=== PATIENT | male | born 1960 | race Caucasian/White ===

== ENCOUNTER → 2017-06-08 | Outpatient (CLI) | payer OTHER ==
[~2017-06-08] MED LIST: ASPIRIN ADULT L81 M2 PO; DILTIAZEM CD300 MG PO; FLONASE ALLERG9.9 ML NAS; HYDRALAZINE HYD50 MG PO; HYDROCODONE BIT1 T19 PO; K-TAB10 MEQ PO; LANOXIN0.125 MG PO; LISINOPRIL40 MG PO; SINGULAIR10 M1 PO
== END | disposition home or self-care (01) ==
LOC: CARD 08:12
DX: I08.0 Rheumatic disorders of both mitral and aortic valves (principal); I50.1 Left ventricular failure, unspecified; R09.89 Other specified symptoms and signs involving the circulatory and respiratory systems

== ENCOUNTER 2017-12-21 17:13 | Emergency (ER) | payer OTHER ==
[~2017-12-21] VITALS: Ht 177.8 cm; Wt 109.3 kg
[2017-12-21 17:40] LABS: BASO # 0.1 10*3/uL (0.0-0.1); BASO % 0.7 % (0.0-1.0); EOS # 0.1 10*3/uL (0.0-0.4); EOS % 1.4 % (1.0-4.0); HEMATOCRIT 37.3 % (42.0-52.0); LYMPH # 1.3 10*3/uL (1.3-4.4); LYMPH % 18.3 % (27.0-41.0); MEAN CELL VOLUME 103.3 fl (80.0-94.0); MEAN CORPUSCULAR HGB 33.2 pg (27.0-31.0); MEAN CORPUSCULAR HGB CONC 32.2 g/dl (33.0-37.0); MEAN PLATELET VOLUME 10.3 fl (9.6-12.3); MONO # 0.7 10*3/uL (0.1-1.0); MONO % 9.7 % (3.0-9.0); NEUT # 5.1 10*3/uL (2.3-7.9); NEUT % 69.6 % (47.0-73.0); PLATELET COUNT AUTOMATED 184 10*3/uL (130-400); RED BLOOD COUNT 3.61 10*6/uL (4.50-5.90); RED CELL DISTRI WIDTH 12.7 % (0-14.5); WHITE BLOOD COUNT 7.3 10*3/uL (4.8-10.8)
[2017-12-21 17:56] LABS: ALBUMIN 3.3 gm/dl (3.1-4.5); ALKALINE PHOSPHATASE 89 U/L (45-117); BUN 39 mg/dl (7-24); CHLORIDE 113 mmol/L (98-107); CREATININE 2.12 mg/dL (0.70-1.30); SGOT/AST 22 IU/L (3-35); SGPT/ALT 25 U/L (12-78); SODIUM 142 mmol/L (136-145); TOTAL PROTEIN 6.8 gm/dL (6.4-8.2)
[2017-12-21 18:08] LABS: POTASSIUM 6.4 mmol/L (3.5-5.1); TROPONIN I < 0.015 ng/ml (<0.045)
== END 2017-12-21 18:45 | disposition left against medical advice (07) ==
LOC: ED 17:13
PROVIDERS: Nurse Practitioner Family
DX: E87.5 Hyperkalemia (principal); I11.0 Hypertensive heart disease with heart failure; I50.9 Heart failure, unspecified; E66.9 Obesity, unspecified; Z88.0 Allergy status to penicillin; Z79.82 Long term (current) use of aspirin; Z79.899 Other long term (current) drug therapy; Z68.30 Body mass index [BMI] 30.0-30.9, adult

== ENCOUNTER → 2018-02-08 | Outpatient (CLI) | payer OTHER | END | disposition home or self-care (01) | LOC: US 09:06 | DX: I10 Essential (primary) hypertension (principal) ==

== ENCOUNTER 2018-07-08 17:09 | Inpatient (IN) | payer OTHER ==
[~2018-07-08] VITALS: Ht 177.8 cm; Wt 101.9 kg
--- NOTE | ~2018-07-08 | EKG ---
[place], [place] ELECTROCARDIOGRAM REPORT NAME: RADHA CALL UNIT #: [id number] ROOM: 424 DOCTOR: LANE DRAFT REPORT BIRTHDATE: [birth year] [facility] Test Date: 2018-07-08 Test Time: 17:54:02 Pat Name: RADHA CALL Department: Room: 424 Gender: M Specialized Developer: JOSE : 1960 Requested By: JIMMY LOZA Order Number: [id number] Reading MD: Amilcar Foy MD Measurements Intervals [place] Rate: 81 P: [place]: QRS: 5 QRSD: 102 T: -38 QT: 406 QTc: 472 Interpretive Statements Atrial fibrillation Probable left ventricular hypertrophy Borderline T abnormalities, inferior leads Electronically Signed On 07-09-2018 6:33:38 PST by Amilcar Foy MD CM:EKGRPT:ELECTROCARDIOGRAM REPORT 1754 0633 JIMMY RODRIGUEZ DRAFT REPORT JIMMY LOZA DO
--- NOTE | ~2018-07-08 | EKG ---
[place], [place] ELECTROCARDIOGRAM REPORT NAME: RADHA CALL UNIT #: [id number] ROOM: 424 DOCTOR: LANE DRAFT REPORT BIRTHDATE: [birth year] [facility] Test Date: 2018-07-09 Test Time: 02:11:59 Pat Name: RADHA CALL Department: Room: 424 1 Gender: M Box Toe Cutter: Michelle Diaz : 1960 Requested By: BIANCA BARBER Order Number: [id number] Reading MD: Amilcar Foy MD Measurements Intervals [place] Rate: 63 P: [place]: QRS: 10 QRSD: 103 T: 195 QT: 436 QTc: 447 Interpretive Statements Atrial fibrillation Ventricular premature complex Nonspecific T abnormalities, lateral leads Electronically Signed On 07-09-2018 6:33:46 PST by Amilcar Foy MD CM:EKGRPT:ELECTROCARDIOGRAM REPORT 0211 0633 BIANCA SHERMAN DRAFT REPORT BIANCA BARBER
--- NOTE | ~2018-07-08 | CON ---
[place], [place] REPORT OF CONSULTATION NAME: RADHA CALL UNIT #: [id number] ROOM: 424 DOCTOR: MAYI MADDOXPEDRITO BIRTHDATE: [birth year] DOS: 07/09/2018 HISTORY OF PRESENT ILLNESS: This is a 57-year-old gentleman with a known history of nonischemic cardiomyopathy. The patient apparently admitted with flu-like symptoms. The patient's heart rate was varied from 50-70 for a short period. At that time, had some trigeminal rhythm and then he went into atrial fibrillation. The rate is very well controlled at this point. The patient denies any chest discomfort, shortness of breath, palpitations. He was feeling more of flu-like symptoms. PAST MEDICAL HISTORY: Bicuspid aortic valve, congestive heart failure, history of left ventricular dysfunction, nonischemic cardiomyopathy, patent coronary arteries by cardiac catheterization. PAST SURGICAL HISTORY: Back surgery, carpal tunnel surgery, arthroscopic knee surgery. SOCIAL HISTORY: Does not drink alcohol. Nonsmoker. FAMILY HISTORY: Positive for coronary artery disease. ALLERGIES: PENICILLIN. HOME MEDICATIONS: Atorvastatin, aspirin, digoxin, diltiazem, hydralazine, hydrocodone, lisinopril, metronidazole. REVIEW OF SYSTEMS: CONSTITUTIONAL: No fever, but reports chills. Denies any fever. HEENT: No visual disturbance or hearing problems. CARDIOVASCULAR: As per HPI. GASTROINTESTINAL: Showed report vomiting, had diarrhea. RESPIRATORY SYSTEM: No shortness of breath. GENITOURINARY: No dysuria. NEUROLOGIC: No syncope. PHYSICAL EXAMINATION: VITAL SIGNS: Blood pressure is 130/60, heart rate is 71, irregularly irregular. ABDOMEN: Soft, nontender. NEUROLOGICAL: Stable. EKG shows atrial fibrillation with a controlled ventricular response. LABORATORY DATA: Sodium 142, potassium 4.2, creatinine is 2. Liver functions are normal. Troponins have been negative. Hemoglobin 14.5, hematocrit 44.1. Blood cultures are pending. IMPRESSION: History of cardiomyopathy with nonischemic cardiomyopathy, paroxysmal atrial fibrillation, probably in new onset, hypertension, hyperlipidemia, history of congestive heart failure, systolic, history of mitral regurgitation, history of bicuspid aortic valve. [place], [place] REPORT OF CONSULTATION NAME: RADHA CALL UNIT #: [id number] ROOM: [facility] DOCTOR: PEDRITO SEE MD BIRTHDATE: [birth year] RECOMMENDATIONS: We will review the echocardiogram. Increase the beta winston, hold off on the Cardizem. The patient is on heparin start change it to oral anticoagulation probably with Eliquis because of the renal insufficiency. We will discuss with the pharmacy regarding the dosage. I will get a digoxin level and we will follow up with him. PEDRITO SEE MD CM:CONSTR:REPORT OF CONSULTATION 0917 07/09/18 1045 interface
--- NOTE | ~2018-07-08 | CON ---
[place], [place] REPORT OF CONSULTATION NAME: RADHA CALL UNIT #: [id number] ROOM: 424 DOCTOR: PEDRITO SEE MD BIRTHDATE: [birth year] DOS: 07/09/2018 ADDENDUM: SUBJECTIVE: I saw the patient this morning. Apparently, echocardiogram was done, preliminary ejection fraction about 30%, moderate aortic stenosis, moderate aortic regurgitation. IMPRESSION: The patient may need a right and left heart catheterization at a later date. PEDRITO SEE MD CM:CONSTR:REPORT OF CONSULTATION 1230 07/09/18 1516 interface
--- NOTE | ~2018-07-08 | EKG ---
[place], [place] ELECTROCARDIOGRAM REPORT NAME: RADHA CALL UNIT #: [id number] ROOM: 424 DOCTOR: LANE DRAFT REPORT BIRTHDATE: [birth year] [facility] Test Date: 2018-07-09 Test Time: 07:10:59 Pat Name: RADHA CALL Department: Room: 424 1 Gender: M Seals Engraver: Ashlie Landeros : 1960 Requested By: BIANCA BARBER Order Number: [id number] Reading MD: Amilcar Foy MD Measurements Intervals [place] Rate: 58 P: SD: QRS: 1 QRSD: 106 T: 152 QT: 470 QTc: 462 Interpretive Statements Atrial fibrillation Inferior infarct, old Lateral leads are also involved Electronically Signed On 07-09-2018 6:33:55 PST by Amilcar Foy MD CM:EKGRPT:ELECTROCARDIOGRAM REPORT 0710 0633 BIANCA SHERMAN DRAFT REPORT BIANCA BARBER
[2018-07-08 17:10] VITALS: BP 108/43
--- NOTE | 2018-07-08 17:33 | NUR ---
ARGUMENTATIVE. "WE WAITED 15 MINUTES IN THE LOBBY" EXPLAINED TO HER THERE IS CURRENTLY A HIGH VOLUME IN THE ED AT THIS TIME.
[2018-07-08 18:25] LABS: BASO % 0.2 % (0.0-1.0); EOS # 0.1 10*3/uL (0.0-0.4); EOS % 0.5 % (1.0-4.0); HEMATOCRIT 44.1 % (42.0-52.0); HEMOGLOBIN 14.5 g/dl (14.0-18.0); LYMPH # 0.8 10*3/uL (1.3-4.4); LYMPH % 7.5 % (27.0-41.0); MEAN CELL VOLUME 96.1 fl (80.0-94.0); MEAN CORPUSCULAR HGB 31.6 pg (27.0-31.0); MEAN CORPUSCULAR HGB CONC 32.9 g/dl (33.0-37.0); MEAN PLATELET VOLUME 10.3 fl (9.6-12.3); MONO # 0.9 10*3/uL (0.1-1.0); MONO % 8.5 % (3.0-9.0); NEUT # 8.7 10*3/uL (2.3-7.9); NEUT % 82.8 % (47.0-73.0); PLATELET COUNT AUTOMATED 230 10*3/uL (130-400); RED BLOOD COUNT 4.59 10*6/uL (4.50-5.90); RED CELL DISTRI WIDTH 12.9 % (0-14.5); WHITE BLOOD COUNT 10.5 10*3/uL (4.8-10.8)
[2018-07-08 18:36] LABS: ACT PARTIAL THROMBO TIME 21.9 SECONDS (20.8-31.5); INTERNATIONAL NORM RATIO 1.1 (2.0-3.5)
[2018-07-08 18:40] LABS: ALBUMIN 3.3 gm/dl (3.1-4.5); CREATININE 2.06 mg/dL (0.70-1.30); POTASSIUM 4.2 mmol/L (3.5-5.1); TOTAL PROTEIN 7.2 gm/dL (6.4-8.2); TROPONIN I 0.038 ng/ml (<0.045)
--- NOTE | 2018-07-08 19:07 | NUR ---
NURSE TO NURSE REPORT GIVEN TO THIS RN.
[2018-07-08 19:50] VITALS: BP 128/63
[2018-07-08 20:26] VITALS: BP 137/61
--- NOTE | 2018-07-08 20:55 | NUR ---
TASHA DRIVE IN TELLER SPOKE WITH DR. CARABALLO REGARDING PATIENT. INPATIENT NURSE TO CALL DR. STEVEN AFTER 0700 FOR ORDERS.
--- NOTE | 2018-07-08 20:59 | NUR ---
NURSE TO NURSE REPORT GIVEN TO MARNI TRUONG.PT TRANSFERRED TO FLOOR VIA STRETCHER BY MARNI MONSALVE.
--- NOTE | 2018-07-08 21:00 | NUR ---
MARIN MITCHELL CALLED TO GIVE REPORT OVER PHONE. ALL QUESTIONS ANSWERED
--- NOTE | 2018-07-08 21:07 | NUR ---
Time: 2108 A 57 year old MALE admitted to 4E under services of GIANLUCA PAUL DO. Pt. arrived via stretcher from ER. Chief complaint: ABD PAIN. DIONNE LAIRD
[2018-07-08] MEDS ORDERED: CARDIZEM LA120 MG PO (21:14)
[2018-07-08] MEDS ORDERED: LISINOPRIL20 MG PO (21:29)
[2018-07-08] MEDS ORDERED: CIPROFLOXACIN500 M4 PO (21:29)
[2018-07-08] MEDS ORDERED: MONTELUKAST SOD10 MG PO (21:30)
[2018-07-08] MEDS ORDERED: METRONIDAZOLE500 M1 PO (21:30)
[2018-07-08] MEDS ORDERED: CYCLOBENZAPRINE10 MG PO (21:31)
[2018-07-08] MEDS ORDERED: CARVEDILOL6.25 MG PO (21:31)
--- NOTE | 2018-07-08 21:33 | NUR ---
MED REC COMPLETED WITH PATIENT ALERT AND ORIENTED TO PERSON PLACE AND TIME. AT BEDSIDE. DR BARBER AT BEDSIDE.
[2018-07-08 22:00] VITALS: BP 136/63
--- NOTE | 2018-07-08 22:51 | NUR ---
MEDICATED WITH PRN NORCO FOR C/O BACK PAIN RATED 7/10 ON A 0/10 PAIN SCALE
[2018-07-09] VITALS: BP 141/62
--- NOTE | 2018-07-09 01:08 | NUR ---
IV HEPARIN PROTOCOL INITIATED PER ORDER. VERIFIED BY TWO RNs. 5,000 UNIT BOLUS ADMINISTERED OVER 15 MINUTES. HEPARIN GTT TO RUN AT 12U/KG/HR OR 12.1 ML/HR.
[2018-07-09 06:50] LABS: BASO % 0.3 % (0.0-1.0); EOS # 0.1 10*3/uL (0.0-0.4); EOS % 0.9 % (1.0-4.0); HEMATOCRIT 40.4 % (42.0-52.0); HEMOGLOBIN 13.4 g/dl (14.0-18.0); LYMPH # 1.4 10*3/uL (1.3-4.4); LYMPH % 21.1 % (27.0-41.0); MEAN CELL VOLUME 96.2 fl (80.0-94.0); MEAN CORPUSCULAR HGB 31.9 pg (27.0-31.0); MEAN CORPUSCULAR HGB CONC 33.2 g/dl (33.0-37.0); MEAN PLATELET VOLUME 10.1 fl (9.6-12.3); MONO # 0.8 10*3/uL (0.1-1.0); MONO % 11.7 % (3.0-9.0); NEUT # 4.3 10*3/uL (2.3-7.9); NEUT % 65.8 % (47.0-73.0); PLATELET COUNT AUTOMATED 185 10*3/uL (130-400); RED CELL DISTRI WIDTH 12.9 % (0-14.5); WHITE BLOOD COUNT 6.5 10*3/uL (4.8-10.8)
[2018-07-09 06:59] LABS: INTERNATIONAL NORM RATIO 1.1 (2.0-3.5)
[2018-07-09 07:08] LABS: ALBUMIN 2.8 gm/dl (3.1-4.5); CREATININE 1.83 mg/dL (0.70-1.30); PHOSPHOROUS 3.6 mg/dL (2.5-4.9); POTASSIUM 4.5 mmol/L (3.5-5.1); TOTAL PROTEIN 6.3 gm/dL (6.4-8.2)
[2018-07-09 07:14] LABS: THYROID STIM HORMONE (HS) 1.27 uIU/ml (0.358-4.75)
--- NOTE | 2018-07-09 08:00 | NUR ---
DR. SEE PAGED REGARDING CONSULT BY HIS ANSWERING SERVICE.
[2018-07-09 09:01] LABS: VITAMIN D, 25-HYDROXY 9.9 ng/mL (30-100)
[2018-07-09] MEDS ORDERED: ELIQUIS5 M1 PO (10:15)
[2018-07-09] MEDS ORDERED: COREG12.5 M1 PO (10:15)
[2018-07-09] MEDS ORDERED: XARELTO15 M1 PO (10:46)
[2018-07-09 12:00] VITALS: BP 138/59
--- NOTE | 2018-07-09 13:30 | NUR ---
PT DISCHARGED HOME. HEPLOCK AND INSPECTOR AIR CARRIER DISCONITNUED.
== END 2018-07-09 13:30 | disposition home or self-care (01) | DRG 309 ==
LOC: ED 17:09 → EDHOLD 20:02 → 4E 21:01
PROVIDERS: Nurse Practitioner Family; Student in an Organized Health Care Education/Training Program; ADMIT Internal Medicine
DX: I48.0 Paroxysmal atrial fibrillation (principal); D68.59 Other primary thrombophilia; Q23.1 Congenital insufficiency of aortic valve; I13.0 Hypertensive heart and chronic kidney disease with heart failure and stage 1 through stage 4 chronic kidney disease, or unspecified chronic kidney disease; I50.20 Unspecified systolic (congestive) heart failure; I42.9 Cardiomyopathy, unspecified; R19.7 Diarrhea, unspecified; D75.89 Other specified diseases of blood and blood-forming organs; E66.9 Obesity, unspecified; N18.3 Chronic kidney disease, stage 3 (moderate); I34.0 Nonrheumatic mitral (valve) insufficiency; R73.9 Hyperglycemia, unspecified; D72.810 Lymphocytopenia; Z88.0 Allergy status to penicillin; Z83.3 Family history of diabetes mellitus; Z80.3 Family history of malignant neoplasm of breast; Z79.82 Long term (current) use of aspirin; Z79.899 Other long term (current) drug therapy; Z79.01 Long term (current) use of anticoagulants; Z68.33 Body mass index [BMI] 33.0-33.9, adult

== ENCOUNTER 2018-07-12 14:37 | Inpatient (IN) | payer OTHER ==
[~2018-07-12] VITALS: Ht 177.8 cm; Wt 107.2 kg
--- NOTE | ~2018-07-12 | EKG ---
[place], [place] ELECTROCARDIOGRAM REPORT NAME: RADHA CALL UNIT #: [id number] ROOM: 511 DOCTOR: LANE DRAFT REPORT BIRTHDATE: [birth year] [facility] Test Date: 2018-07-12 Test Time: 20:18:24 Pat Name: RADHA CALL Department: Room: 511 Gender: M Carton Filler: EKG.VT : 1960 Requested By: JOAO HOOKS Order Number: [id number] Reading MD: Amilcar Foy MD Measurements Intervals [place] Rate: 85 P: CT: QRS: 14 QRSD: 102 T: 217 QT: 417 QTc: 496 Interpretive Statements Atrial fibrillation Abnormal R-wave progression, late transition Inferior infarct, old Lateral leads are also involved Compared to ECG 07/09/2018 07:10:59 No significant changes Electronically Signed On 07-15-2018 8:24:47 PST by Amilcar Foy MD CM:EKGRPT:ELECTROCARDIOGRAM REPORT 17 0824 JOAO SHERMAN DRAFT REPORT JOAO HOOKS M.D.
--- NOTE | ~2018-07-12 | CON ---
[place], [place] REPORT OF CONSULTATION [facility]: [id number] UNIT #: [id number] ROOM: 511 DOCTOR: LATOYA CARABALLO MD BIRTHDATE: [birth year] DOS: 07/13/2018 HISTORY OF PRESENT ILLNESS: This is a 57-year-old -[place]rist[place] man who is a patient of Dr. Foy. He had a nonischemic cardiomyopathy, and in 2014 coronary arteries were found to be normal, but he also has a bicuspid aortic valve and mild to moderate stenosis, chronic kidney disease and has had heart failure, essential hypertension. He has never had a stroke, diabetes mellitus, COPD, cancer. He does not use alcoholic beverages except on rare occasion and has been a nonsmoker. He was admitted to the hospital last week with new diagnosis of atrial fibrillation with rapid rate. He was treated appropriately. Heart rate was controlled and he was placed on Xarelto and sent home. On questioning, it becomes apparent that he had aches and pains and some weakness and diarrhea. About 2 days before, he was admitted with atrial fibrillation. He feels tired, exhausted, but does not have any chest pain, does not have any breathing difficulty, wake up short of breath and no swelling in the legs. He has not passed out. No nighttime sweats. HOME MEDICATIONS: Include carvedilol, lisinopril, Xarelto and digoxin 0.125 mg daily, diltiazem 120 daily, hydralazine 50 mg b.i.d., lisinopril 20 mg daily, Singulair 10 mg daily and Xarelto 15 mg daily and cyclobenzaprine 10 mg daily. PHYSICAL EXAMINATION: GENERAL: Reveals the patient who is very pleasant, alert, oriented. He is lying in bed comfortably. No active fever. There is no thyromegaly or finger clubbing. VITAL SIGNS: Pulse is irregular at 80 beats per minute, blood pressure is 114/42. NECK: JVP is normal. AJR is definitely negative. HEART: There is no carotid bruit. He has grade 3 to 4/6 mid peaking systolic murmur over the aortic area and aortic sound is easily appreciated, although mildly diminished in intensity. EXTREMITIES: There is no edema in the lower extremity. RESPIRATORY: He is not tachypneic. Lungs are clear to percussion and auscultation with excellent breath sounds. ABDOMEN: Supple and nontender. No bruit or pulsatile mass. LABORATORY DATA: An ECG showed atrial fibrillation with PVCs. Troponin I level is normal. Chest x-ray was unremarkable. IMPRESSION: 1. New diagnosis of atrial fibrillation, rate is nicely controlled. 2. Dilated cardiomyopathy, pretty much resolved. An echocardiogram done last week showed almost normalization of left ventricular systolic function. 3. Bicuspid aortic valve with mild to moderate aortic stenosis. 4. I think this patient's fatigue and lack of pep is likely from viral [place], [place] REPORT OF CONSULTATION NAME: RADHA CALL UNIT #: [id number] ROOM: 511 DOCTOR: LATOYA CARABALLO MD BIRTHDATE: [birth year] infection that he has had for the last week. 5. From cardiac standpoint, he may be discharged home and to follow up with Dr. Law mcarthur. LATOYA CARABALLO MD CM:CONSTR:REPORT OF CONSULTATION 1657 07/14/18 0455 interface
--- NOTE | ~2018-07-12 | EKG ---
[place], [place] ELECTROCARDIOGRAM REPORT NAME: RADHA CALL UNIT #: [id number] ROOM: 511 DOCTOR: LANE DRAFT REPORT BIRTHDATE: [birth year] [facility] Test Date: 2018-07-12 Test Time: 14:40:10 Pat Name: RADHA CALL Department: Room: 511 Gender: M Joint Finisher: Arminda Isaac : 1960 Requested By: JOAO HOOKS Order Number: [id number] Reading MD: Amilcar Foy MD Measurements Intervals [place] Rate: 54 P: [place]: QRS: 3 QRSD: 100 T: 194 QT: 418 QTc: 397 Interpretive Statements Atrial fibrillation Inferior infarct, old Lateral leads are also involved Baseline wander in lead(s) V1 Compared to ECG 07/09/2018 07:10:59 No significant changes Electronically Signed On 07-15-2018 8:24:10 PST by Amilcar Foy MD CM:EKGRPT:ELECTROCARDIOGRAM REPORT 1440 0824 JOAO SHERMAN DRAFT REPORT JOAO HOOKS M.D.
--- NOTE | ~2018-07-12 | EKG ---
[place], [place] ELECTROCARDIOGRAM REPORT NAME: RADHA CALL UNIT #: [id number] ROOM: 511 DOCTOR: LANE DRAFT REPORT BIRTHDATE: [birth year] [facility] Test Date: 2018-07-12 Test Time: 17:42:34 Pat Name: RADHA CALL Department: Room: 511 Gender: M Bundle Tier And Labeler: Arminda Isaac : 1960 Requested By: JOAO HOOKS Order Number: [id number] Reading MD: Amilcar Foy MD Measurements Intervals [place] Rate: 48 P: [place]: QRS: 5 QRSD: 98 T: 178 QT: 421 QTc: 377 Interpretive Statements Atrial fibrillation Inferior infarct, old Lateral leads are also involved Baseline wander in lead(s) V1 Compared to ECG 07/09/2018 07:10:59 No significant changes Electronically Signed On 07-15-2018 8:24:38 PST by Amilcar Foy MD CM:EKGRPT:ELECTROCARDIOGRAM REPORT 1742 0824 JOAO SHERMAN DRAFT REPORT JOAO HOOKS M.D.
[~2018-07-12 14:37] MED LIST changes: +CARDIZEM LA120 MG PO; +CARVEDILOL6.25 MG PO; +CIPROFLOXACIN500 M4 PO; +COREG12.5 M1 PO; +CYCLOBENZAPRINE10 MG PO; +ELIQUIS5 M1 PO; +LISINOPRIL20 MG PO; +METRONIDAZOLE500 M1 PO; +MONTELUKAST SOD10 MG PO; +XARELTO15 M1 PO
[2018-07-12 14:55] LABS: BASO % 0.6 % (0.0-1.0); EOS # 0.1 10*3/uL (0.0-0.4); EOS % 1.7 % (1.0-4.0); HEMATOCRIT 41.6 % (42.0-52.0); HEMOGLOBIN 13.6 g/dl (14.0-18.0); LYMPH # 1.2 10*3/uL (1.3-4.4); LYMPH % 16.7 % (27.0-41.0); MEAN CORPUSCULAR HGB 31.7 pg (27.0-31.0); MEAN CORPUSCULAR HGB CONC 32.7 g/dl (33.0-37.0); MONO # 0.8 10*3/uL (0.1-1.0); MONO % 10.9 % (3.0-9.0); NEUT # 5.1 10*3/uL (2.3-7.9); NEUT % 69.5 % (47.0-73.0); PLATELET COUNT AUTOMATED 253 10*3/uL (130-400); RED BLOOD COUNT 4.29 10*6/uL (4.50-5.90); RED CELL DISTRI WIDTH 13.1 % (0-14.5); WHITE BLOOD COUNT 7.3 10*3/uL (4.8-10.8)
[2018-07-12 15:31] LABS: ACT PARTIAL THROMBO TIME 28.8 SECONDS (20.8-31.5); INTERNATIONAL NORM RATIO 1.2 (2.0-3.5)
[2018-07-12 15:44] LABS: ALBUMIN 3.1 gm/dl (3.1-4.5); CREATININE 1.77 mg/dL (0.70-1.30); POTASSIUM 4.3 mmol/L (3.5-5.1); TOTAL PROTEIN 6.6 gm/dL (6.4-8.2); TROPONIN I 0.025 ng/ml (<0.045)
[2018-07-12 16:46] VITALS: BP 134/61
--- NOTE | 2018-07-12 16:46 | NUR ---
A 57, admitted to 5E, under the services of JUAN M Anderson DO with a diagnosis of CHEST PAIN. Chief complaint is INTERMITTENT CHEST PAIN, SOB.. Patient arrived via ambulatory from ER. Monitor applied. Initial assessment completed. Vital signs taken and recorded. JUAN M ANDERSON DO notified of admission to the unit. Orders received. See assessment for past medical history, medications and allergies. Patient and/or family oriented to unit. [facility] visitation policy reviewed. Clothing/patient valuable form completed. ZARINA SANTOYO
--- NOTE | 2018-07-12 16:53 | NUR ---
MED REC UPDATED WITH PT AT BEDSIDE. PT REPORTS NO CHANGE IN MEDS SINCE DISCHARGE FROM [facility] LAST THURSDAY.
--- NOTE | 2018-07-12 17:56 | NUR ---
INFORMED THAT LISINOPRIL HAS BEEN UPDATED ON PTs HOME MED REC. SAID TO ORDER WHAT PT TAKES AT HOME. SEE MAR.
[2018-07-12 20:00] VITALS: BP 117/47; BP 130/60
--- NOTE | 2018-07-12 20:47 | NUR ---
DR SEE CALLED WITH NEW CONSULT- DR CARABALLO WEATHERSEAL TECHNICIAN- NO ANSWER. NO VOICEMAIL LEFT-VOICEMAIL BOX NOT SET UP. WILL CALL BACK.
--- NOTE | 2018-07-12 21:35 | NUR ---
PATIENT REQUESTING PAIN MEDICATION FOR BACK PAIN. NORCO ADMINISTERED PRESCRIBED. WILL MONITOR FOR EFECTIVENESS.
--- NOTE | 2018-07-12 22:35 | NUR ---
PATIENT RESTING COMFORTABLY AT THIS TIME. RATES PAIN 4/10 AT THIS TIME. WILL CONTINUE TO MONITOR.
--- NOTE | 2018-07-12 22:35 | NUR ---
DR CARABALLO CALLED BACK FOR INFORMATION ON NEW CONSULT. WILL SEE PATIENT IN THE MORNING.
[2018-07-13] VITALS: BP 109/67
[2018-07-13 07:26] LABS: BASO % 0.5 % (0.0-1.0); EOS # 0.1 10*3/uL (0.0-0.4); HEMATOCRIT 38.3 % (42.0-52.0); HEMOGLOBIN 12.2 g/dl (14.0-18.0); LYMPH # 1.4 10*3/uL (1.3-4.4); LYMPH % 21.4 % (27.0-41.0); MEAN CORPUSCULAR HGB 31.2 pg (27.0-31.0); MEAN CORPUSCULAR HGB CONC 31.9 g/dl (33.0-37.0); MEAN PLATELET VOLUME 10.9 fl (9.6-12.3); MONO # 0.8 10*3/uL (0.1-1.0); MONO % 11.9 % (3.0-9.0); NEUT # 4.1 10*3/uL (2.3-7.9); NEUT % 63.7 % (47.0-73.0); PLATELET COUNT AUTOMATED 178 10*3/uL (130-400); RED BLOOD COUNT 3.91 10*6/uL (4.50-5.90); WHITE BLOOD COUNT 6.5 10*3/uL (4.8-10.8)
[2018-07-13 07:37] LABS: ALBUMIN 2.8 gm/dl (3.1-4.5); CREATININE 1.63 mg/dL (0.70-1.30); PHOSPHOROUS 4.3 mg/dL (2.5-4.9); POTASSIUM 4.6 mmol/L (3.5-5.1); TOTAL PROTEIN 5.9 gm/dL (6.4-8.2)
[2018-07-13 08:00] VITALS: BP 122/50
--- NOTE | 2018-07-13 09:32 | NUR ---
PT REQUESTED AND RECEIVED PO NORCO PER PRN ORDER FOR FOR C/O BACK PAIN. RATES PAIN 02/19. WILL MONITOR EFFECTIVENESS. CALL LIGHT WITHIN REACH.
--- NOTE | 2018-07-13 10:30 | NUR ---
PAIN BEING RELIEVED PER PT. AT BEDSIDE.
--- NOTE | 2018-07-13 10:58 | NUR ---
IN TO SEE PATIENT REGARDING PLAN OF CARE.
[2018-07-13 12:00] VITALS: BP 122/48
[2018-07-13 16:00] VITALS: BP 114/42
--- NOTE | 2018-07-13 17:09 | NUR ---
DR CARABALLO IN TO SEE PATIENT AT THIS TIME AND STATES THAT PATIENT IS CLEARED FROM HIS STANDPOINT. DR BARBER NOTIFIED THAT PATIENT IS INQUIRING ABOUT GOING HOME AND STATES "IT PROBABLY WILL NOT BE TODAY"
--- NOTE | 2018-07-13 17:58 | NUR ---
PATIENT INQUIRING ABOUT WANTING TO GO HOME, DR BARBER NOTIFIED AND IS ON FLOOR TO SEE PATIENT AND PATIENT'S AT THIS TIME.
[2018-07-13 20:00] VITALS: BP 133/64
[2018-07-14] VITALS: BP 130/71
--- NOTE | 2018-07-14 05:49 | NUR ---
PATIENT MEDICATED WITH NORCO FOR COMPLAINTS OF BACK PAIN. WILL MONITOR FOR EFFECTIVENESS.
[2018-07-14 07:03] LABS: BASO % 0.2 % (0.0-1.0); EOS # 0.2 10*3/uL (0.0-0.4); EOS % 1.7 % (1.0-4.0); HEMOGLOBIN 12.7 g/dl (14.0-18.0); LYMPH % 11.9 % (27.0-41.0); MEAN CELL VOLUME 95.1 fl (80.0-94.0); MEAN CORPUSCULAR HGB CONC 32.6 g/dl (33.0-37.0); MEAN PLATELET VOLUME 10.5 fl (9.6-12.3); MONO # 0.9 10*3/uL (0.1-1.0); MONO % 10.4 % (3.0-9.0); NEUT # 6.6 10*3/uL (2.3-7.9); NEUT % 75.5 % (47.0-73.0); PLATELET COUNT AUTOMATED 179 10*3/uL (130-400); RED CELL DISTRI WIDTH 12.7 % (0-14.5); WHITE BLOOD COUNT 8.7 10*3/uL (4.8-10.8)
[2018-07-14 07:16] LABS: CREATININE 1.54 mg/dL (0.70-1.30); POTASSIUM 4.3 mmol/L (3.5-5.1)
[2018-07-14 08:00] VITALS: BP 116/52
--- NOTE | 2018-07-14 08:00 | NUR ---
Patient resting quietly with no c/o discomfort. Respirations easy and regular. Vital signs stable. No overt distress. ADELITA FAN R
--- NOTE | 2018-07-14 11:23 | NUR ---
Discharge instructions reviewed with patient/family. Patient receptive and verbalizes understanding. Follow-up care arranged. Written instructions given to patient/family. ADELITA FAN
--- NOTE | 2018-07-14 11:33 | NUR ---
Furnace Process Plant Operator in to talk to patient. Patient states lives at HOME with . There are SOME steps in the home. Physician: BERNADETTE Pharmacy: [facility] Home health services: NONE Patient's level of ADLs: INDEPENDENT Patient has working utilities: YES DME: NONE Follow-up physician's appointment after d/c: WILL BE MADE BY HOSPITALIST NURSE DIRECTOR ON DISCHARGE Does patient want to access PORTAL?: NO Discharge plan PT STATES HE LIVES AT HOME WITH HIS AND IS INDEPENDENT IN CARE. HAS NO HOME NEEDS AT THIS TIME. WILL CONTINUE TO FOLLOW.. EVELYNE QUINN
== END 2018-07-14 11:23 | disposition home or self-care (01) | DRG 313 ==
LOC: ED 14:37 → EDHOLD 15:57 → 5E 16:17
PROVIDERS: Emergency Medicine; Nurse Practitioner Family; Registered Nurse; Student in an Organized Health Care Education/Training Program; ADMIT Internal Medicine
DX: R07.9 Chest pain, unspecified (principal); D68.59 Other primary thrombophilia; I50.22 Chronic systolic (congestive) heart failure; E44.0 Moderate protein-calorie malnutrition; I13.0 Hypertensive heart and chronic kidney disease with heart failure and stage 1 through stage 4 chronic kidney disease, or unspecified chronic kidney disease; I42.9 Cardiomyopathy, unspecified; I42.0 Dilated cardiomyopathy; N18.3 Chronic kidney disease, stage 3 (moderate); E87.8 Other disorders of electrolyte and fluid balance, not elsewhere classified; R73.9 Hyperglycemia, unspecified; R74.0 Nonspecific elevation of levels of transaminase and lactic acid dehydrogenase [LDH]; E55.9 Vitamin D deficiency, unspecified; Z88.0 Allergy status to penicillin; N18.9 Chronic kidney disease, unspecified; I34.0 Nonrheumatic mitral (valve) insufficiency; E66.9 Obesity, unspecified; Z83.3 Family history of diabetes mellitus; Z80.3 Family history of malignant neoplasm of breast; I48.91 Unspecified atrial fibrillation; I35.0 Nonrheumatic aortic (valve) stenosis; Z68.32 Body mass index [BMI] 32.0-32.9, adult

== ENCOUNTER → 2018-11-03 | Outpatient (CLI) | payer OTHER | END | disposition home or self-care (01) | LOC: CARD 01:23 | DX: I35.0 Nonrheumatic aortic (valve) stenosis (principal); I51.7 Cardiomegaly; I42.0 Dilated cardiomyopathy; Z95.2 Presence of prosthetic heart valve; Z98.890 Other specified postprocedural states; Z86.79 Personal history of other diseases of the circulatory system ==

== ENCOUNTER → 2019-06-27 | Outpatient (CLI) | payer OTHER | END | disposition home or self-care (01) | LOC: RESCLI 02:28 | DX: I11.0 Hypertensive heart disease with heart failure (principal); I50.32 Chronic diastolic (congestive) heart failure; I48.0 Paroxysmal atrial fibrillation; K21.9 Gastro-esophageal reflux disease without esophagitis; M54.5 Low back pain; G89.29 Other chronic pain; J30.2 Other seasonal allergic rhinitis; Z79.899 Other long term (current) drug therapy; Z88.0 Allergy status to penicillin ==

== ENCOUNTER 2019-12-21 02:38 | Inpatient (IN) | payer OTHER ==
[2019-12-21] VITALS (15 sets, daily range): BP systolic 86–128; BP diastolic 40–94
[~2019-12-21] VITALS: Ht 177.8 cm; Wt 107.6 kg
[2019-12-21 03:00] LABS: BASO % 0.3 % (0.0-1.0); EOS # 0.3 10*3/uL (0.0-0.4); HEMATOCRIT 32.5 % (42.0-52.0); LYMPH # 0.9 10*3/uL (1.3-4.4); LYMPH % 7.8 % (27.0-41.0); MEAN CELL VOLUME 100.9 fl (80.0-94.0); MEAN CORPUSCULAR HGB 32.3 pg (27.0-31.0); MEAN PLATELET VOLUME 10.3 fl (9.6-12.3); MONO # 1.3 10*3/uL (0.1-1.0); MONO % 11.2 % (3.0-9.0); NEUT # 8.6 10*3/uL (2.3-7.9); NEUT % 77.3 % (47.0-73.0); PLATELET COUNT AUTOMATED 215 10*3/uL (130-400); RED BLOOD COUNT 3.22 10*6/uL (4.50-5.90); RED CELL DISTRI WIDTH 13.2 % (0-14.5); WHITE BLOOD COUNT 11.2 10*3/uL (4.8-10.8)
[2019-12-21 03:11] LABS: ACT PARTIAL THROMBO TIME 38.5 SECONDS (20.0-32.1); INTERNATIONAL NORM RATIO 1.6 (2.0-3.5)
[2019-12-21 03:17] LABS: ALBUMIN 2.6 gm/dl (3.1-4.5); ALKALINE PHOSPHATASE 72 U/L (45-117); BUN 38 mg/dl (7-24); CHLORIDE 104 mmol/L (98-107); CREATININE 1.79 mg/dL (0.70-1.30); POTASSIUM 5.3 mmol/L (3.5-5.1); SGOT/AST 23 IU/L (3-35); SGPT/ALT 42 U/L (12-78); SODIUM 137 mmol/L (136-145); TOTAL PROTEIN 6.7 gm/dL (6.4-8.2)
[2019-12-21 03:18] LABS: TROPONIN I < 0.015 ng/ml (<0.045)
[2019-12-21] MEDS ORDERED: ALDACTONE25 MG PO (03:36)
[2019-12-21] MEDS ORDERED: COREG25 MG PO (03:38)
[2019-12-21] MEDS ORDERED: LIPITOR20 MG PO (03:39)
[2019-12-21] MEDS ORDERED: LOSARTAN POTASS25 M1 PO (03:40)
[2019-12-21] MEDS ORDERED: PEPCID40 MG PO (03:40)
[2019-12-21] MEDS ORDERED: LASIX20 MG PO (03:41)
--- NOTE | 2019-12-21 03:46 | NUR ---
PATIENT RECENTLY HAD RIGHT KNEE REPLACEMENT LAST THURSDAY, PER PATIENT HAS SURGICAL DRESSING ON AND IT IS NOT TO BE REMOVED UNTIL THIS COMING THURSDAY. PATIENT REQUESTING NOT TO HAVE DRESSING REMOVED FOR PHOTO.
--- NOTE | 2019-12-21 04:50 | NUR ---
A 59, admitted to , under the services of JUAN M Anderson DO with a diagnosis of AFIB WITH RVR. Chief complaint is TACHYCARDIA. Patient arrived via bed from ER. Monitor applied. Initial assessment completed. Vital signs taken and recorded. JUAN M ANDERSON DO notified of admission to the unit. Orders received. See assessment for past medical history, medications and allergies. Patient and/or family oriented to unit. [facility] visitation policy reviewed. Clothing/patient valuable form completed. TAISHA SHANNON
--- NOTE | 2019-12-21 04:50 | NUR ---
PATIENT ARRIVES TO FLOOR ON CARDIZEM GTT @5MLS/HR BAG #1
--- NOTE | 2019-12-21 05:28 | NUR ---
DR MANSFIELD ANSWERING SERVICE NOTIFIED OF CONSULT
--- NOTE | 2019-12-21 05:29 | NUR ---
PT HAS A SURGICAL DRESSING TO RIGHT KNEE AFTER A KNEE REPLACEMENT ON Thursday12/14/2019. PER PT, THE DRESSING IS DUE TO BE CHANGED 12/22/2019. UNABLE TO ASSESS WOUND AT THIS TIME.
[2019-12-21] MEDS ORDERED: ASPIRIN ADULT L81 M1 PO (05:44)
[2019-12-21] MEDS ORDERED: HYDROCODONE-AC1 EACH PO (05:46)
--- NOTE | 2019-12-21 06:03 | NUR ---
MEDS RECONCILED PER PT'S HOME MED LIST
[2019-12-21 06:53] LABS: BILIRUBIN NEGATIVE (NEGATIVE); BLOOD NEGATIVE (NEGATIVE); CLARITY CLEAR (CLEAR); COLOR YELLOW (YELLOW); GLUCOSE NEGATIVE (NEGATIVE); KETONE NEGATIVE (NEGATIVE); SPECIFIC GRAVITY 1.015 (1.005-1.030)
[2019-12-21 06:54] LABS: EPITHELIAL CELLS 0-2; LEUKO ESTERASE NEGATIVE (NEGATIVE); NITRITE NEGATIVE (NEGATIVE); RBC 0-2 rbc/hpf (0-2); UROBILINOGEN 0.2 E.U./dl (0.2-1.0); WBC 0-2 wbc/hpf (0-5)
--- NOTE | 2019-12-21 07:12 | NUR ---
DR CHE NOTIFIED PATIENT IN NSR 90'S WITH PVC'S CARDIZEM GTT @5/HR, STATES OK TO TITRATE OFF
--- NOTE | 2019-12-21 07:19 | NUR ---
RADHA CALL [id number] Please refer to the physician's history and physical for past medical history, comorbid conditions, and allergies. Diagnosis: ATRIAL FIBRILLATION WITH RAPID VENTRICULAR RESPONS Ford Score: 18,AT RISK WOUND DESCRIPTIONS: This nurse went to evaluate patient for skin impairments. Upon assessment duoderm noted to right knee. Scant amount of strikethrough drainage noted. Patient stated there is a nurse coming tomorrow to remove the dressing and a dry dressing should replace this dressing. Patient states he had surgery last thursday with Dr. Chun and is scheduled for a follow up next week. Surface the patient is resting on: Isoflex SKIN PREVENTION RECOMMENDATION: 1. Pressure redistribution support surface as appropriate 2. Elevate heels 3. Remove boots/TEDS every shift and reapply 4. Head of bed 30 degrees as tolerated 5. Assess nutrition and hydration 6. Manage moisture 7. Avoid the use of containment devices while in bed 8. Use absorptive products on surfaces limit layers of linens on bed 9. Turn and reposition every 1-2 hours in bed and every 1 hour in chair as tolerated 10. Weight shifts every 15 minutes while up in chair 11. Offloading with pillows or device to keep heels elevated off bed 12. Monitor skin at least every shift 13. Inspect under medical devices twice a day WOUND TREATMENT RECOMMENDATIONS: Patient will follow up with Dr. Abraham upon discharge who perform the surgery. Remove drssing 12/22/19 to right knee. Cleanse area with nss and apply dsd daily and prn for soiling.
--- NOTE | 2019-12-21 08:23 | NUR ---
PT REQUESTED AND RECEIVED PO NORCO PER PRN ORDER FOR C/O RIGHT KNEE PAIN. S/P RIGHT KNEE REPLACEMENT ON 12/13. RATES PAIN 02/19. WILL MONITOR EFFECTIVENESS. CALL LIGHT WITHIN REACH.
--- NOTE | 2019-12-21 09:00 | NUR ---
Napkin Machine Operator in to talk to patient. Patient states lives at home with . There are no steps in the home. Physician: rhina bagley Pharmacy: [facility] health services: [facility] Patient's level of ADLs: MINIMAL ASSIST Patient has working utilities: all working DME: walker Follow-up physician's appointment after d/c: will be made by hospitalist nurse director upon discharge Does patient want to access PORTAL?: no Discharge plan discussed with patient, he states he lives at home with his , he is independent in adls and uses a walker for ambulation due to having knee replacement last week, he states he has [facility] and would like to resume their services. case management will notify [facility] when patient is discharged, case management will follow. NIKI ANGELES
--- NOTE | 2019-12-21 09:23 | NUR ---
JULIANA RELIEVING PAIN PER PT. WILL CONTINUE TO MONITOR. CALL LIGHT WITHIN REACH.
--- NOTE | 2019-12-21 11:04 | NUR ---
EKG PERFORMED PER ORDER. EKG RESULTS CALLED TO AT THIS TIME.
--- NOTE | 2019-12-21 11:32 | NUR ---
ON FLOOR TO REVIEW EKG AT THIS TIME.
--- NOTE | 2019-12-21 13:06 | NUR ---
MEDICATED WITH PRN IV MORPHINE FOR RIGHT KNEE PAIN RATED 9/10 ON PAIN SCALE.
--- NOTE | 2019-12-21 14:06 | NUR ---
MORPHINE RELIEVING PAIN PER PT. WILL CONTINUE TO MONITOR.
--- NOTE | 2019-12-21 14:50 | NUR ---
Occupational Therapy evaluation completed on four with full evaluation to follow. Recommend occupational therapy per plan of care and home with continued HH services and assist from family upon discharge. Thank you for this referral.
--- NOTE | 2019-12-21 14:50 | NUR ---
Physical Therapy evaluation completed on 4th floor with full evaluation to follow. Recommend physical therapy per plan of care and home with HH services upon discharge. Thank you for this referral. Julia Benito PT
--- NOTE | 2019-12-21 15:16 | NUR ---
PT REQUESTED PO NORCO PER PRN ORDER FOR C/O RIGHT KNEE PAIN. RATES PAIN 8/10. WILL MONITOR EFFECTIVENESS.
--- NOTE | 2019-12-21 16:00 | NUR ---
CPM APPLIED PER ORDER. PT STATES HE TOLERATES 80-90 DEGREES AT HOME. CURRENTLY ON 80 DEGREES. WILL MONITOR.
--- NOTE | 2019-12-21 16:16 | NUR ---
JULIANA RELIEVING PAIN PER PT. WILL CONTINUE TO MONITOR. CPM MAINTAINED PER ORDER.
--- NOTE | 2019-12-21 17:31 | NUR ---
PATIENT UP TO RR VIA WALKER. CPM REMOVED. PT REPOSITIONED BACK INTO BED. CPM APPLIED PER ORDER. PT GIVEN IV MORPHINE PER PRN ORDER FOR C/O RIGHT KNEE PAIN. RATES PAIN 7/10. WILL MONITOR EFFECTIVENESS. CALL LIGHT WITHIN REACH.
--- NOTE | 2019-12-21 18:31 | NUR ---
MORPHINE RELIEVING PAIN PER PT. WILL CONTINUE TO MONITOR.
--- NOTE | 2019-12-21 20:20 | NUR ---
CPM READJUSTED. PT. VOICES NO C/O AT THIS TIME. WILL CONTINUE TO MONITOR. CALL LIGHT WITHIN REACH.
--- NOTE | 2019-12-21 22:00 | NUR ---
PT. VOICES NO C/O AT THIS TIME; CALL LIGHT WITHIN REACH.
--- NOTE | 2019-12-21 23:15 | NUR ---
MEDICATED WITH NORCO FOR C/O RIGHT KNEE PAIN RATED AN 8/10.
[2019-12-22] VITALS: BP 106/50
--- NOTE | 2019-12-22 01:00 | NUR ---
RESTING IN BED WITH EYES CLOSED; PAIN MEDICATION GIVEN EARLIER APPARENTLY EFFECTIVE.
--- NOTE | 2019-12-22 05:44 | NUR ---
MEDICATED WITH NORCO FOR C/O RIGHT KNEE PAIN RATED A 7/10.
[2019-12-22 05:52] LABS: BASO % 0.5 % (0.0-1.0); EOS # 0.4 10*3/uL (0.0-0.4); EOS % 4.6 % (1.0-4.0); LYMPH # 0.9 10*3/uL (1.3-4.4); MEAN CELL VOLUME 101.3 fl (80.0-94.0); MEAN CORPUSCULAR HGB 32.4 pg (27.0-31.0); MEAN CORPUSCULAR HGB CONC 31.9 g/dl (33.0-37.0); MEAN PLATELET VOLUME 10.2 fl (9.6-12.3); MONO # 0.9 10*3/uL (0.1-1.0); MONO % 11.7 % (3.0-9.0); NEUT # 5.8 10*3/uL (2.3-7.9); NEUT % 71.5 % (47.0-73.0); PLATELET COUNT AUTOMATED 213 10*3/uL (130-400); RED BLOOD COUNT 3.06 10*6/uL (4.50-5.90); RED CELL DISTRI WIDTH 13.2 % (0-14.5); WHITE BLOOD COUNT 8.1 10*3/uL (4.8-10.8)
[2019-12-22 06:08] LABS: CREATININE 1.63 mg/dL (0.70-1.30); POTASSIUM 4.7 mmol/L (3.5-5.1)
--- NOTE | 2019-12-22 06:15 | NUR ---
RESTING IN BED WITH EYES CLOSED; PAIN MEDICATION APPARENTLY EFFECTIVE.
--- NOTE | 2019-12-22 06:43 | NUR ---
Patient requesting first dressing change to be completed by a physcian and not a nurse.
[2019-12-22 07:36] VITALS: BP 128/63
--- NOTE | 2019-12-22 07:38 | NUR ---
PHYSICAL THERAPY IN TO SEE PATIENT AT THIS TIME.
--- NOTE | 2019-12-22 07:40 | NUR ---
PHYSICAL THERAPY Patient seen this am 1;1 for therapy visit and was resting supine in bed upon therapist arrival. Patient identified by name / and reports 6/10 R knee pain. Patient transfers supine to sit EOB with SBA, then sit to stand SBA with use of wh walker standing support. Patient ambulates 75'x 1, CGA, wh walker, demonstrating decreased R heel stike, increased gait velocity and impulsive behaviour at times which contributes to POOR safety awareness. Patient is WBAT on R LE and received v/c to improve R knee flexion during "toe off" step sequence. Patient returned to EOB sit and remained with call light, tray table and telephone. Will continue per POC as tolerated, total treatment time 15 minutes. Manuel Lemon, SWIM COACH
--- NOTE | 2019-12-22 07:55 | NUR ---
OT NOTE Pt was seen this A.M. 1:1 for 15 minute OT session. Upon arrival pt was supine in bed. Pt identified by name and and had complaints of 6/10 R knee pain. Pt transferred supine to sit EOB I. While sitting EOB pt doffed and donned B socks LA. Sit to stand then completed from bed level with SBA followed by functional mobility around the room and to the bathroom and back with SBA and use of w/w for UE support. Throughout pt presented with good safety awareness. Pt's heart rate throughout activity was 95 bpm. Pt then transferred sit to supine I. There he was left with call light in hand, tray table in place, and phone in reach. Continue with rec D/C plan to return home. ALEENA Bonner/Ange
--- NOTE | 2019-12-22 09:00 | NUR ---
case management visits with patient, he will return home when medically stable and resume [facility] health, case management will follow
--- NOTE | 2019-12-22 09:20 | NUR ---
CPM IN USE PER ORDER. NO DISTRESS NOTED. WILL CONTINUE TO MONITOR. CALL LIGHT WITHIN REACH.
[2019-12-22 12:00] VITALS: BP 110/69
--- NOTE | 2019-12-22 12:08 | NUR ---
PT REQUESTED PO NORCO PER PRN ORDER FOR C/O RIGHT KNEE PAIN. RATES PAIN 9/10. WILL MONITOR EFFECTIVENESS.
--- NOTE | 2019-12-22 13:08 | NUR ---
NORCO RELIEVING PAIN PER PT. WILL CONTINUE TO MONITOR.
--- NOTE | 2019-12-22 15:06 | NUR ---
case management contacted [facility], home health resume orders faxed, will notify them when patient is discharged
--- NOTE | 2019-12-22 15:06 | NUR ---
PATIENT REQUESTED TO SPEAK TO PHYSICIAN REGARDING DISCHARGE. CALLED AT THIS TIME REGARDING PATIENT'S REQUEST.
[2019-12-22] MEDS ORDERED: LOSARTAN POTASS50 M1 PO (15:15)
[2019-12-22] MEDS ORDERED: CARVEDILOL25 MG PO (15:15)
--- NOTE | 2019-12-22 15:34 | NUR ---
THIS NURSE SPOKE WITH REGARDING DISCHARGE. PATIENT TO STAY ANOTHER DAY AND BE DISCHARGED TOMORROW.
[2019-12-22 16:00] VITALS: BP 111/72
--- NOTE | 2019-12-22 17:35 | NUR ---
PT MEDICATED WITH IV MORPHINE PER PRN ORDER FOR C/O RIGHT KNEE PAIN. RATES PAIN 01/19. WILL MONITOR EFFECTIVENESS. CALL LIGHT WITHIN REACH.
--- NOTE | 2019-12-22 18:35 | NUR ---
IV MORPHINE EFFECTIVE PER PT.
[2019-12-22 20:00] VITALS: BP 103/69
--- NOTE | 2019-12-22 21:46 | NUR ---
PO NORCO ADMINISTERED FOR C/O PAIN IN R KNEE RATED 7/10. WILL MONITOR EFFECTIVENESS. CALL LIGHT IN REACH.
--- NOTE | 2019-12-22 23:30 | NUR ---
IV MORPHINE ALSO ADMINSITERED AT THIS TIME FOR C/O PAIN IN R KNEE RATED 8/10 AND NOW PAIN IN R HAND RATED 4/10. WILL MONITOR. CALL LIGHT IN REACH.
--- NOTE | 2019-12-22 23:30 | NUR ---
PT CALLED RN INTO ROOM STATING THAT IV TO R WRIST/HAND BLEEDING. RN INTO ROOM. IV SITE REMOVED. DURING REMOVAL, PT DEVELOPED SKIN TEAR. PHOTO TAKEN PER POLICY. RN HELD PRESSURE TO SITE. TEMORARY DRESSING OF ADAPTIC/OPTIFOAM APPLIED TO SITE TO STOP BLEEDING. SURE PREP APPLIED TO PERIWOUND AND ALLOWED TO DRY COMPLETELY PRIOR TO DRESSING APPLICATION. PT TOLERATED WELL. WILL NOTIFY
[2019-12-23] VITALS (8 sets, daily range): BP systolic 105–126; BP diastolic 57–68
--- NOTE | 2019-12-23 00:20 | NUR ---
EARLIER MEDICATIONS EFFECTIVE PER PT.
--- NOTE | 2019-12-23 01:44 | NUR ---
NOTIFIED OF SKIN TEAR ON R HAND. WILL PLACE ORDERS BASED ON WOUND CARE RECOMMENDATIONS.
--- NOTE | 2019-12-23 04:30 | NUR ---
POLITICAL REPORTER CALLED, PT THROWING MORE COUPLETS/TRIPLETS/MULTIFOCAL PVCs THAN PREVIOUSLY. ALSO IRREGULAR UNDERLYING RHYTHM. STAT EKG ORDERED. NOTIFIED.
--- NOTE | 2019-12-23 04:43 | NUR ---
HERE TO REVIEW AUTO DAMAGE ESTIMATOR STRIPS/EKG. NEW ORDERS RECEIVED.
--- NOTE | 2019-12-23 04:43 | NUR ---
[facility] CALLED TO HAVE MEDICATIONS VERIFIED. WILL GIVE COREG WHEN PROFILED.
--- NOTE | 2019-12-23 05:39 | NUR ---
PT HR UP TO 130S-150S WHEN UP TO BATHROOM. PT RETURNED TO BED AND HR BACK IN 120S. 50 MG COREG ADMINISTERED AT 0450. WILL CONTINUE TO MONITOR EFFECTIVENESS. PT INSISTS ON USING CPM MACHINE WITH "HIS" SETTINGS THAT ARE "FIXED." REFUSES TO USE STRAPS INSTRUCTED.
[2019-12-23 06:22] LABS: CREATININE 1.67 mg/dL (0.70-1.30); POTASSIUM 4.6 mmol/L (3.5-5.1)
--- NOTE | 2019-12-23 06:39 | NUR ---
RADHA CALL [id number] Please refer to the physician's history and physical for past medical history, comorbid conditions, and allergies. Diagnosis: ATRIAL FIBRILLATION WITH RAPID VENTRICULAR RESPONS Ford Score: 18,AT RISK WOUND DESCRIPTIONS: New Skin Impairment: Wound Number: 2 Location of the wound: right hand Type of wound: skin tear Thickness: Partial Size: 4.5cm x 2.0cm x 0.1cm Tunneling: none Undermining: none Sinus Tract: none Presence of Exudate: Serousanguineous Amount: Moderate Color: Red Odor: None Periwound Skin Appearance: Normal Wound edges: approximated Pain (associated with wound): tender at time of assessment How does patient state this happened? pt states this happened yesterday when tape was remove Surface the patient is resting on: Isoflex SKIN PREVENTION RECOMMENDATION: 1. Pressure redistribution support surface as appropriate 2. Elevate heels 3. Remove boots/TEDS every shift and reapply 4. Head of bed 30 degrees as tolerated 5. Assess nutrition and hydration 6. Manage moisture 7. Avoid the use of containment devices while in bed 8. Use absorptive products on surfaces limit layers of linens on bed 9. Turn and reposition every 1-2 hours in bed and every 1 hour in chair as tolerated 10. Weight shifts every 15 minutes while up in chair 11. Offloading with pillows or device to keep heels elevated off bed 12. Monitor skin at least every shift 13. Inspect under medical devices twice a day WOUND TREATMENT RECOMMENDATIONS: skin tear guidelines: Cleanse right hand with nss and apply sureprep around the wound hydrogel to wound versatel to wound bed and cover with optifoam gentle every 2 days and prn for soiling. Follow up in the wound care on 12/26/19 4:00pm with Brent BERNARDO-BC card given to patient.
--- NOTE | 2019-12-23 07:05 | NUR ---
MADE AWARE OF CURRENT RHYTHM AFTER COREG ADMINISTRATION. ALSO MADE AWARE OF WOUND CARE RECOMMENDATIONS. NEW ORDERS RECEIVED.
--- NOTE | 2019-12-23 07:38 | NUR ---
PHYSICAL THERAPY Screen received pt has already been evaled and is on caseload, thank you. Julia Benito PT
--- NOTE | 2019-12-23 10:00 | NUR ---
Dr. Vega notified of wound care recommendations.
--- NOTE | 2019-12-23 10:58 | NUR ---
Nutritional Support Services Note: Appetite is good for meals, he is eating 100% of meals. Cardiac diet as ordered. Skin tear noted to right hand and right knee has healing surgical incision. Continue to encourage 100% po intake of meals. Will provide a night snack. Will follow if needed. No other nutrition intervention needed at this time. Alethea Lucia Rdn Ld
--- NOTE | 2019-12-23 12:45 | NUR ---
OCCUPATIONAL THERAPY CO-SIGN I approve of the Occupational Therapy notes written above. ANGELINA LAUGHLIN, OTR/L
--- NOTE | 2019-12-23 13:00 | NUR ---
PHYSICAL THERAPY Patient was supine in bed with CPM running and stated he had just recently received his pain pill and was instructed to stay in bed by his Nurse. Therapist will attempt to verify this with Nursing and will continue per POC as able. Manuel Lemon, ENVIRONMENTAL COORDINATOR
--- NOTE | 2019-12-23 17:03 | NUR ---
[place] AGREED TO DRESSING CHANGE OF RIGHT KNEE, REFUSED PICTURES, PER PT " O HELL IF YOU GOTTA DO ALL OF THAT DONT BOTHER" DRESSING CHANGED, WOUND ASSESSED, WELL APPROXIMATED INCISION OF RIGHT KNEE, MEASURING 15CM IN LENGTH <0.1CM IN WIDTH, WOUND EDGES ARE NORMAL COLOR, NO REDNESS NOTED NO DRAINAGE, AREA CLEANSED WITH NORMAL SALINE AND COVERED WITH STERILE 4X4, AND SECURED WITH MEDFIX TAPE
--- NOTE | 2019-12-23 20:17 | NUR ---
PATIENT IS AAOX3 RESTING IN BED WITH EASY AND REGULAR RESPERS ON ROOM AIR. ASSESSMENT IS COMPLETE WITH NO S/S OF DISTRESS NOTED AT THIS TIME. PATIENT C/O RIGHT KNEE PAIN RATING A 7/10 AND REQUESTING PAIN MEDICATION. PATIENT IS HOOKED UP TO CPM MACHINE HE STATES" I PUT IT ON MYSELF, I DONT WANT TO WAR THE STRAPS." BED IS LOW, LOCKED, AND CALL LIGHT IS WITHIN REACH. WILL CONTINE TO MONITOR, SEE INTERVENTION SCREEN.
--- NOTE | 2019-12-23 20:25 | NUR ---
PRN NORCO GIVEN FOR C/O RIGHT KNEE PAIN. CALL LIGHT IS WITHIN REACH. WILL MONITOR EFFECT.
[2019-12-24] VITALS: BP 113/54
--- NOTE | 2019-12-24 02:07 | NUR ---
24 HR. CHART CHECK COMPLETE.
--- NOTE | 2019-12-24 02:36 | NUR ---
PATIENT MEDICATED WITH NORCO FOR C/O RIGHT KNEE PAIN. RATES 01/19. WILL CHECK EFFECTIVENESS.
--- NOTE | 2019-12-24 03:30 | NUR ---
PRN NORCO SEEMS EFFECTIVE, PATIENT IS SLEEPING WITH EASY AND REGULAR RESPERS ON ROOM AIR. CALL LIGHT IS WITHIN REACH.
--- NOTE | 2019-12-24 05:01 | NUR ---
PATIENT AWAKENS EASILY FOR AM MEDICATION AND LAB DRAW. PATIENT TOLERATED WELL. CALL LIGHT IS WITHIN REACH.
[2019-12-24 06:43] LABS: CREATININE 1.72 mg/dL (0.70-1.30); POTASSIUM 4.7 mmol/L (3.5-5.1)
[2019-12-24 06:44] LABS: BASO % 0.3 % (0.0-1.0); EOS # 0.3 10*3/uL (0.0-0.4); EOS % 2.9 % (1.0-4.0); HEMATOCRIT 32.5 % (42.0-52.0); LYMPH % 9.6 % (27.0-41.0); MEAN CELL VOLUME 98.8 fl (80.0-94.0); MEAN CORPUSCULAR HGB 31.9 pg (27.0-31.0); MEAN CORPUSCULAR HGB CONC 32.3 g/dl (33.0-37.0); MEAN PLATELET VOLUME 10.3 fl (9.6-12.3); MONO # 1.2 10*3/uL (0.1-1.0); NEUT % 75.5 % (47.0-73.0); RED BLOOD COUNT 3.29 10*6/uL (4.50-5.90); RED CELL DISTRI WIDTH 13.2 % (0-14.5); WHITE BLOOD COUNT 10.5 10*3/uL (4.8-10.8)
[2019-12-24 06:48] LABS: PLATELET COUNT AUTOMATED 298 10*3/uL (130-400)
[2019-12-24 08:00] VITALS: BP 113/73
[2019-12-24 12:00] VITALS: BP 115/60
[2019-12-24 16:00] VITALS: BP 109/73
[2019-12-24 20:00] VITALS: BP 113/73
--- NOTE | 2019-12-24 20:00 | NUR ---
PATIENT IS AAOX3 RESTING IN BED WITH EASY AND REGULAR RESPERS ON ROOM AIR. ASSESSMENT IS COMPLETE WITH NO C/O OR S/S OF DISTRESS NOTED AT THIS TIME. BED IS LOW, LOCKED, AND CALL LIGHT IS WITHIN REACH. WILL CONTINUE TO MONITOR, SEE INTERVENTION SCREEN.
--- NOTE | 2019-12-24 20:06 | NUR ---
PATIENT CALLED IN VERY VERBALLY AGGRESSIVE TOWARDS RN REGARDING PATIENT DISCHARGE. TRIED TO EXPLAIN THAT PRIMARY DRDianne WOULD LIKE PATIENT SEEN BY CARDIOLOGY BEFORE DISCHARGE. STATED "[facility] SAY [facility] AND THIS IS NOT [facility]. I HAVE BEEN WAITING ALL DAY TO COME AND PICK HIM UP I WASNT ABLE TO GO TO THE GROCERY STORE. EVERYTIME HE IS DOWN AT THAT HOSPITAL THERE IS ALWAYS SOMETHING NEW, NOW WE HAVE TO GO TO WOUNDCARE ON THURSDAY FOR A SKIN TEAR THAT YOU CAUSED, LAST TIME HE WAS THERE THEY RELEASED HIM TOO EARLY HE WENT TO WORK AND ENDED UP NEEDING OPEN HEART SURGERY. THERE WERE NO MEDICATION CHANGES, HE DID NOT GET PHYSICAL THERAPY TODAY." TRIED TO EXPLAIN TO FAMILY MEMBER THAT PHYSICAL THERAPY IS NOT HERE ON WEEKENDS, FAMILY MEMBER STATED " THEN WHAT IS THE POINT OF BEING A HOSPITAL? IF I DIDN'T HAVE TO CALL THE AMBULANCE I WOULD HAVE NEVER BOUGHT HIM THERE. I AM CALLING ADMINISTRATION ON THURSDAY BECAUSE THIS IS RIDICULOUS AND HUNG UP THE PHONE."
--- NOTE | 2019-12-24 21:34 | NUR ---
DR. VAIL INTO SEE PATIENT. OK TO DISCHARGE FROM CARDIOLOGY STANDPOINT.
--- NOTE | 2019-12-24 21:36 | NUR ---
SPOKE WITH DR. BUCK REGARDING TO DISCHARGE, HE STATED DAY TEAM WILL TAKE A LOOK AT THAT.
--- NOTE | 2019-12-24 22:02 | NUR ---
PRN NORCO GIVEN FOR C/O RIGHT KNEE PAIN RATING A 6/10. CALL LIGHT IS WITHIN REACH, WILL MONITOR EFFECT.
--- NOTE | 2019-12-24 22:18 | NUR ---
PATIENT CALLED IN BEING VERBALLY AGRESSIVE TOWARDS NURSE AGAIN. INFORMED THAT I CAN ONLY SPEAK ON WHAT WAS RELAYED TO RN FROM THE BEGINNING OF RN'S SHIFT. STATED "THIS IS COMPLETELY UNPROFESSIONAL." AND THEN STATED SOMETHING ABOUT A SKIN TEAR TO THE RIGHT HAND THAT WAS CAUSED HERE. SHIFT DIRECTOR MADE AWARE AND THIS RN WAS INSTRUCTED TO TRANSFER CALL TO THEM.
--- NOTE | 2019-12-24 23:00 | NUR ---
PRN NORCO APPEARS EFFECTIVE PATIENT SLEEPING WITH EASY AND REGULAR RESPERS ON ROOM AIR. CALL LIGHT IS WITHIN REACH.
[2019-12-25] VITALS: BP 115/48
[2019-12-25 06:23] LABS: CREATININE 1.8 mg/dL (0.70-1.30); POTASSIUM 4.7 mmol/L (3.5-5.1)
[2019-12-25 08:00] VITALS: BP 116/66
--- NOTE | 2019-12-25 08:17 | NUR ---
PT REQUESTED AND WAS MEDICATED WITH NORCO FOR C/O RIGHT KNEE PAIN. CALL LIGHT IN REACH. WILL MONITOR
--- NOTE | 2019-12-25 09:00 | NUR ---
MEDICATION EFFECTIVE PER PT.
--- NOTE | 2019-12-25 10:45 | NUR ---
DISCHARGE WOUND PHOTO TAKEN.
--- NOTE | 2019-12-25 10:56 | NUR ---
PT REQUESTED AND WAS MEDICATED WITH MORPHINE IV FOR C/O RIGHT KNEE PAIN. CALL LIGHT IN REACH. WILL MONITOR
--- NOTE | 2019-12-25 11:19 | NUR ---
PT REQUESTED AND WAS MEDICATED WITH NORCO FOR C/O RIGHT KNEE PAIN. CALL LIGHT IN REACH. WILL MONITOR
--- NOTE | 2019-12-25 11:21 | NUR ---
MORPHINE EFFECTIVE PER PT.
--- NOTE | 2019-12-25 11:26 | NUR ---
Discharge instructions reviewed with patient/family. Patient receptive and verbalizes understanding. Follow-up care arranged. Written instructions given to patient/family. ADELITA FAN
--- NOTE | 2019-12-26 07:34 | NUR ---
PHYSICAL THERAPY CO-SIGN I approve of the Physical Therapy notes written above. Julia Benito PT
== END 2019-12-25 11:26 | disposition home health service (06) | DRG 308 ==
LOC: ED 02:38 → EDHOLD 03:49 → 4E 03:49
PROVIDERS: Emergency Medicine; Internal Medicine; Student in an Organized Health Care Education/Training Program; ADMIT Internal Medicine
DX: I48.0 Paroxysmal atrial fibrillation (principal); N17.0 Acute kidney failure with tubular necrosis; E43 Unspecified severe protein-calorie malnutrition; I50.32 Chronic diastolic (congestive) heart failure; I13.0 Hypertensive heart and chronic kidney disease with heart failure and stage 1 through stage 4 chronic kidney disease, or unspecified chronic kidney disease; D68.59 Other primary thrombophilia; R65.10 Systemic inflammatory response syndrome (SIRS) of non-infectious origin without acute organ dysfunction; I47.1 Supraventricular tachycardia; D53.9 Nutritional anemia, unspecified; Z96.651 Presence of right artificial knee joint; N18.3 Chronic kidney disease, stage 3 (moderate); R73.9 Hyperglycemia, unspecified; J30.2 Other seasonal allergic rhinitis; E66.9 Obesity, unspecified; E55.9 Vitamin D deficiency, unspecified; I34.0 Nonrheumatic mitral (valve) insufficiency; I42.8 Other cardiomyopathies; E87.5 Hyperkalemia; Z68.34 Body mass index [BMI] 34.0-34.9, adult; Z79.01 Long term (current) use of anticoagulants; Z83.3 Family history of diabetes mellitus; Z88.0 Allergy status to penicillin; Z80.3 Family history of malignant neoplasm of breast; Z82.49 Family history of ischemic heart disease and other diseases of the circulatory system; Z79.82 Long term (current) use of aspirin; Z79.899 Other long term (current) drug therapy; Z95.2 Presence of prosthetic heart valve

== ENCOUNTER → 2019-12-26 | Outpatient (CLI) | payer OTHER ==
[~2019-12-26] MED LIST changes: +ALDACTONE25 MG PO; +ASPIRIN ADULT L81 M1 PO; +CARVEDILOL25 MG PO; +COREG25 MG PO; +HYDROCODONE-AC1 EACH PO; +LASIX20 MG PO; +LIPITOR20 MG PO; +LOSARTAN POTASS25 M1 PO; +LOSARTAN POTASS50 M1 PO; +PEPCID40 MG PO
== END | disposition home or self-care (01) ==
LOC: RESCLI 03:57
DX: J02.9 Acute pharyngitis, unspecified (principal); I11.0 Hypertensive heart disease with heart failure; I50.32 Chronic diastolic (congestive) heart failure; K21.9 Gastro-esophageal reflux disease without esophagitis; I48.0 Paroxysmal atrial fibrillation; M54.5 Low back pain; G89.29 Other chronic pain; J30.2 Other seasonal allergic rhinitis; E78.5 Hyperlipidemia, unspecified; Z79.82 Long term (current) use of aspirin; Z79.899 Other long term (current) drug therapy; Z95.828 Presence of other vascular implants and grafts; Z88.0 Allergy status to penicillin

== ENCOUNTER → 2020-03-22 | Outpatient (CLI) | payer OTHER | END | disposition home or self-care (01) | LOC: CARD 09:37 | PROVIDERS: ATTEND Nurse Practitioner | DX: I48.91 Unspecified atrial fibrillation (principal); I25.2 Old myocardial infarction ==

== ENCOUNTER → 2020-06-12 | Outpatient (CLI) | payer OTHER ==
[2020-06-12 12:18] LABS: CREATININE 2.11 mg/dL (0.70-1.30); POTASSIUM 4.8 mmol/L (3.5-5.1)
== END | disposition home or self-care (01) ==
LOC: LAB 10:26
PROVIDERS: ATTEND Family Medicine
DX: Z12.5 Encounter for screening for malignant neoplasm of prostate (principal); I10 Essential (primary) hypertension; N18.31 Chronic kidney disease, stage 3a

== ENCOUNTER → 2020-09-06 | Outpatient (CLI) | payer OTHER | END | disposition home or self-care (01) | LOC: RESCLI 00:31 | PROVIDERS: ATTEND Internal Medicine Nephrology | DX: J30.2 Other seasonal allergic rhinitis (principal); I11.0 Hypertensive heart disease with heart failure; I50.32 Chronic diastolic (congestive) heart failure; I48.0 Paroxysmal atrial fibrillation; E78.5 Hyperlipidemia, unspecified; Z79.82 Long term (current) use of aspirin; Z79.899 Other long term (current) drug therapy; Z95.828 Presence of other vascular implants and grafts; Z88.0 Allergy status to penicillin ==

== ENCOUNTER → 2020-12-24 | Outpatient (CLI) | payer OTHER | END | disposition home or self-care (01) | LOC: CARD 09:14 | PROVIDERS: ATTEND Thoracic Surgery (Cardiothoracic Vascular Surgery) | DX: I34.0 Nonrheumatic mitral (valve) insufficiency (principal); I51.89 Other ill-defined heart diseases; Z95.2 Presence of prosthetic heart valve ==

== ENCOUNTER → 2021-03-08 | Outpatient (CLI) | payer OTHER ==
[2021-03-08 08:25] LABS: BASO % 0.3 % (0.0-1.0); EOS # 0.2 10*3/uL (0.0-0.4); EOS % 3.1 % (1.0-4.0); LYMPH # 1.1 10*3/uL (1.3-4.4); MEAN CORPUSCULAR HGB 32.1 pg (27.0-31.0); MEAN CORPUSCULAR HGB CONC 32.1 g/dl (33.0-37.0); MONO # 0.6 10*3/uL (0.1-1.0); MONO % 9.4 % (3.0-9.0); NEUT # 4.2 10*3/uL (2.3-7.9); NEUT % 68.9 % (47.0-73.0); PLATELET COUNT AUTOMATED 201 10*3/uL (130-400); RED CELL DISTRI WIDTH 13.4 % (0-14.5); WHITE BLOOD COUNT 6.1 10*3/uL (4.8-10.8)
[2021-03-08 08:40] LABS: ALBUMIN 3.3 gm/dl (3.1-4.5); CREATININE 1.85 mg/dL (0.70-1.30); POTASSIUM 4.9 mmol/L (3.5-5.1)
== END | disposition home or self-care (01) ==
LOC: LAB 08:02
PROVIDERS: ATTEND Internal Medicine Nephrology
DX: I12.9 Hypertensive chronic kidney disease with stage 1 through stage 4 chronic kidney disease, or unspecified chronic kidney disease (principal); N18.31 Chronic kidney disease, stage 3a; D63.1 Anemia in chronic kidney disease; R79.89 Other specified abnormal findings of blood chemistry

== ENCOUNTER → 2022-07-09 | Outpatient (CLI) | payer OTHER ==
[~2022-07-09] MED LIST changes: +AMIODARONE HYD200 MG PO; +FAMOTIDINE20 M1 PO; +HYDROCODONE-AC1 EAC2 PO; +LASIX40 MG PO; +METOPROLOL SUCC25 M2 PO; +PREDNISONE10 MG PO; +VIBRAMYCIN100 MG PO; +XARE20MG PO
== END | disposition home or self-care (01) ==
LOC: RESCLI 13:59
PROVIDERS: ATTEND Student in an Organized Health Care Education/Training Program
DX: M10.9 Gout, unspecified (principal); I48.0 Paroxysmal atrial fibrillation; Z79.82 Long term (current) use of aspirin; Z79.899 Other long term (current) drug therapy

== ENCOUNTER → 2022-07-21 | Outpatient (CLI) | payer OTHER ==
[2022-07-21 11:46] LABS: POTASSIUM 4.1 mmol/L (3.4-5.1); TOTAL PROTEIN 7.2 gm/dL (6.0-8.0)
== END | disposition home or self-care (01) ==
LOC: LAB 10:56
PROVIDERS: ATTEND Internal Medicine
DX: I10 Essential (primary) hypertension (principal); M10.9 Gout, unspecified

== ENCOUNTER → 2022-08-06 | Outpatient (CLI) | payer OTHER | END | disposition home or self-care (01) | LOC: RESCLI 03:55 | PROVIDERS: ATTEND Internal Medicine | DX: I48.91 Unspecified atrial fibrillation (principal); K21.00 Gastro-esophageal reflux disease with esophagitis, without bleeding; E78.2 Mixed hyperlipidemia; G45.9 Transient cerebral ischemic attack, unspecified; Z72.89 Other problems related to lifestyle; Z98.890 Other specified postprocedural states; Z79.899 Other long term (current) drug therapy ==

== ENCOUNTER → 2022-09-02 | Outpatient (CLI) | payer OTHER ==
[2022-09-02 13:21] LABS: POTASSIUM 4.3 mmol/L (3.4-5.1); TOTAL PROTEIN 7.1 gm/dL (6.0-8.0); URIC ACID 8.9 mg/dL (3.7-9.2)
== END | disposition home or self-care (01) ==
LOC: LAB 12:53
PROVIDERS: ATTEND Student in an Organized Health Care Education/Training Program
DX: M10.9 Gout, unspecified (principal)

== ENCOUNTER → 2022-09-03 | Outpatient (CLI) | payer OTHER | END | disposition home or self-care (01) | LOC: RESCLI 01:53 | PROVIDERS: ATTEND Internal Medicine | DX: I11.0 Hypertensive heart disease with heart failure (principal); I50.32 Chronic diastolic (congestive) heart failure; J30.2 Other seasonal allergic rhinitis; M10.9 Gout, unspecified; E78.5 Hyperlipidemia, unspecified; G89.29 Other chronic pain; I48.0 Paroxysmal atrial fibrillation; I25.2 Old myocardial infarction; I49.1 Atrial premature depolarization; K21.9 Gastro-esophageal reflux disease without esophagitis; Z98.890 Other specified postprocedural states; Z88.0 Allergy status to penicillin; Z79.899 Other long term (current) drug therapy ==

== ENCOUNTER → 2022-11-19 | Outpatient (CLI) | payer OTHER ==
[~2022-11-19] MED LIST changes: +ALLOPURINOL100 MG PO; +FUROSEMIDE40 MG PO; +PREDNISONE50 MG PO; +SOTALOL HCL80 MG PO
== END | disposition home or self-care (01) ==
LOC: RESCLI 01:18
PROVIDERS: ATTEND Internal Medicine
DX: M54.41 Lumbago with sciatica, right side (principal); I11.0 Hypertensive heart disease with heart failure; I50.32 Chronic diastolic (congestive) heart failure; I48.0 Paroxysmal atrial fibrillation; J30.2 Other seasonal allergic rhinitis; E78.5 Hyperlipidemia, unspecified; G89.29 Other chronic pain; K21.9 Gastro-esophageal reflux disease without esophagitis; Z88.0 Allergy status to penicillin; F10.90 Alcohol use, unspecified, uncomplicated; Z98.890 Other specified postprocedural states; Z79.82 Long term (current) use of aspirin; Z79.899 Other long term (current) drug therapy

== ENCOUNTER → 2022-12-10 | Outpatient (CLI) | payer OTHER | END | disposition home or self-care (01) | LOC: RESCLI 02:53 | PROVIDERS: ATTEND Internal Medicine | DX: M54.41 Lumbago with sciatica, right side (principal); G89.29 Other chronic pain; I11.0 Hypertensive heart disease with heart failure; I50.32 Chronic diastolic (congestive) heart failure; I48.0 Paroxysmal atrial fibrillation; J30.2 Other seasonal allergic rhinitis; E78.5 Hyperlipidemia, unspecified; G96.00 Cerebrospinal fluid leak, unspecified; M10.9 Gout, unspecified; Z98.890 Other specified postprocedural states; Z79.899 Other long term (current) drug therapy ==

== ENCOUNTER → 2023-02-12 | Outpatient (CLI) | payer OTHER | END | disposition home or self-care (01) | LOC: RESCLI 00:50 | PROVIDERS: ATTEND Student in an Organized Health Care Education/Training Program | DX: R51.9 Headache, unspecified (principal); I48.91 Unspecified atrial fibrillation; I13.0 Hypertensive heart and chronic kidney disease with heart failure and stage 1 through stage 4 chronic kidney disease, or unspecified chronic kidney disease; I50.9 Heart failure, unspecified; N18.9 Chronic kidney disease, unspecified; M10.9 Gout, unspecified; E78.5 Hyperlipidemia, unspecified; M54.9 Dorsalgia, unspecified; J32.9 Chronic sinusitis, unspecified; Z88.0 Allergy status to penicillin; Z98.890 Other specified postprocedural states; Z79.899 Other long term (current) drug therapy ==